=== PATIENT | male | born 1950 | race Caucasian/White ===

== ENCOUNTER → 2023-05-28 07:00 | Outpatient (REF) | payer MEDICARE, OTHER, SELFPAY ==
[2023-05-28 07:50] LABS: % Eosinophils 2.4 % (0-6); % Immature Granulocytes 0.2 % (0-0.5); % Lymphocytes 20.4 % (20.5-51.1); % Monocytes 11.2 % (1.7-9.3); % Neutrophils 64.8 % (42.2-75.2); Absolute Basophils 0.1 10^3/uL (0-0.2); Absolute Eosinophils 0.1 10^3/uL (0-0.7); Absolute Monocytes 0.6 10^3/uL (0.1-0.6); Absolute Neutrophils 3.3 10^3/uL (1.4-6.5); Hematocrit 41.8 % (39.0-52.0); Hemoglobin 13.9 g/dL (13.0-18.0); Mean Corp Hgb Conc. 33.3 g/dL (33.0-37.0); Mean Corpuscular Hgb 29.5 pg (27.0-31.0); Mean Corpuscular Volume 88.7 fL (80.0-94.0); Mean Platelet Volume 10.8 fL (7.4-10.4); Nucleated Red Blood Cells % 0 % (-); Platelet Count 233 10^3/uL (130-400); Red Blood Cell Count 4.71 10^6/uL (4.70-6.10); Red Cell Dist. Width 12.2 % (11.5-14.5)
[2023-05-28 08:20] LABS: Erythrocyte Sed Rate 8 mm/hour (0-20)
[2023-05-28 08:32] LABS: HDL Cholesterol 61 mg/dl; LDL Cholesterol, Calculated 98 mg/dl; Total Cholesterol 176 mg/dl (50-199); Triglyceride 87 mg/dl (10-149); Very Low Density Lipoprotein 17 mg/dl (0-30)
[2023-05-28 08:53] LABS: Vitamin D, 25-OH*** 42.1 ng/mL (30-80)
[2023-05-28 09:25] LABS: Vitamin B12 929 pg/ml (239-931)
[2023-05-29 06:04] LABS: PSA, Total - Diagnostic < 0.06 ng/ml (0.0-4.0)
[2023-05-30 01:29] LABS: ANA, IgG Reflex to HEp-2 Detected (None Detected)
[2023-05-30 10:49] LABS: Vitamin B6 Results 101.3 nmol/L (20.0-125.0)
[2023-05-31 08:29] LABS: ANA, HEp-2, IgG Detected (<1:80)
[2023-06-01 07:36] LABS: ANA Pattern Homogeneous
== END ==
LOC: REG 07:00
PROVIDERS: ATTENDING PHYSICIAN Internal Medicine Geriatric Medicine
DX: C61 Malignant neoplasm of prostate (principal); I10 Essential (primary) hypertension; K21.9 Gastro-esophageal reflux disease without esophagitis; E78.00 Pure hypercholesterolemia, unspecified; M72.2 Plantar fascial fibromatosis; Z13.89 Encounter for screening for other disorder; M54.16 Radiculopathy, lumbar region; G60.3 Idiopathic progressive neuropathy; K40.90 Unilateral inguinal hernia, without obstruction or gangrene, not specified as recurrent
CPT/HCPCS: 36415; 80061; 82306; 82607; 84153; 84207; 85025; 85652; 86038; 86039

== ENCOUNTER → 2024-05-22 11:16 | Outpatient (REF) | payer MEDICARE, OTHER, SELFPAY ==
[2024-05-23 12:30] LABS: Lyme Antibody Screen, EIA Negative (Negative)
== END ==
LOC: REG 11:16
PROVIDERS: ATTENDING PHYSICIAN Nurse Practitioner Family; FAMILY PHYSICIAN Internal Medicine Geriatric Medicine
DX: L28.2 Other prurigo (principal)
CPT/HCPCS: 36415; 86618

== ENCOUNTER → 2024-05-26 06:44 | Outpatient (REF) | payer MEDICARE, OTHER, SELFPAY ==
[2024-05-26 08:18] LABS: % Basophils 0.8 % (0-2); % Eosinophils 2.5 % (0-6); % Immature Granulocytes 0.4 % (0-0.5); % Lymphocytes 22.6 % (20.5-51.1); % Monocytes 11.1 % (1.7-9.3); % Neutrophils 62.6 % (42.2-75.2); Absolute Eosinophils 0.1 10^3/uL (0-0.7); Absolute Lymphocytes 1.1 10^3/uL (1.2-3.4); Absolute Monocytes 0.5 10^3/uL (0.1-0.6); Hematocrit 43.4 % (39.0-52.0); Hemoglobin 14.5 g/dL (13.0-18.0); Mean Corp Hgb Conc. 33.4 g/dL (33.0-37.0); Mean Corpuscular Hgb 29.5 pg (27.0-31.0); Mean Corpuscular Volume 88.2 fL (80.0-94.0); Mean Platelet Volume 10.8 fL (7.4-10.4); Nucleated Red Blood Cells % 0 % (-); Platelet Count 213 10^3/uL (130-400); Red Blood Cell Count 4.92 10^6/uL (4.70-6.10); Red Cell Dist. Width 12.2 % (11.5-14.5); White Blood Cell Count 4.8 10^3/uL (4.8-10.8)
[2024-05-26 08:31] LABS: Urine Albumin 1+ (Neg - Trace); Urine Bilirubin Negative (Negative); Urine Character Clear (Clear); Urine Color Yellow; Urine Glucose Negative (Negative); Urine Ketone Negative (Negative); Urine Leukocyte Negative (Negative); Urine Nitrite Negative (Negative); Urine Occult Blood Negative (Negative); Urine Urobilinogen Negative (Neg - 1+)
[2024-05-26 08:53] LABS: ALT (SGPT) 28 U/L (0-50); AST (SGOT) 31 U/L (17-59); Albumin 4.7 g/dl (3.5-5.0); Alkaline Phosphatase 69 U/L (38-126); Blood Urea Nitrogen 21 mg/dl (9-20); Calcium 9.7 mg/dl (8.4-10.2); Carbon Dioxide 30 mmol/L (22-30); Chloride 106 mmol/L (98-107); Glucose 100 mg/dl (70-99); HDL Cholesterol 57 mg/dl; LDL Cholesterol, Calculated 109 mg/dl; Sodium 143 mmol/L (135-145); Total Bilirubin 0.8 mg/dl (0.2-1.3); Total Cholesterol 181 mg/dl (50-199); Total Protein 6.6 g/dl (6.3-8.2); Triglyceride 79 mg/dl (10-149); Very Low Density Lipoprotein 15 mg/dl (0-30); eGFR > 60.00
[2024-05-26 09:20] LABS: PSA, Total - Diagnostic < 0.06 ng/ml (0.0-4.0)
[2024-05-26 10:02] LABS: Urine Mucus Many
[2024-05-26 10:03] LABS: Urine Amorphous Seen
[2024-05-26 10:05] LABS: Urine Red Blood Cell 0-2 /HPF (0-2); Urine White Cell 0-2 /HPF (0-5)
[2024-05-26 10:26] LABS: Erythrocyte Sed Rate 6 mm/hour (0-20)
== END ==
LOC: REG 06:44
PROVIDERS: ATTENDING PHYSICIAN Internal Medicine Geriatric Medicine
DX: Z00.00 Encounter for general adult medical examination without abnormal findings (principal); C61 Malignant neoplasm of prostate; I10 Essential (primary) hypertension; K21.9 Gastro-esophageal reflux disease without esophagitis; E78.00 Pure hypercholesterolemia, unspecified; M72.2 Plantar fascial fibromatosis; M54.59 Other low back pain; Z13.89 Encounter for screening for other disorder; G60.3 Idiopathic progressive neuropathy
CPT/HCPCS: 36415; 80053; 80061; 81003; 81015; 84153; 85025; 85652

== ENCOUNTER → 2024-06-06 08:02 | Outpatient (REF) | payer MEDICARE, OTHER, SELFPAY | LOC: RAD 08:02 | PROVIDERS: ATTENDING PHYSICIAN Nurse Practitioner Family | DX: M71.21 Synovial cyst of popliteal space [Baker], right knee (principal) | CPT/HCPCS: 76882 ==